=== PATIENT | male | born 1950 | race Caucasian/White ===

== ENCOUNTER 2022-09-18 15:49 | Inpatient (IN) | payer MEDICARE, MEDICAID ==
[~2022-09-18] VITALS: Ht 182.9 cm; Wt 73.0 kg
[2022-09-18] MEDS ORDERED: DEXTROSE 50%-WATER 25 GM/50 ML SYRINGE IVP PRN (18:45)
[2022-09-18] MEDS ORDERED: ACETAMINOPHEN 325 MG TABLET PO PRN (18:45)
[2022-09-18] MEDS: INSULIN LISPRO 100 UNITS/ML SQ PRN ×2 (19:54→22:55)
[2022-09-18 20:01] LABS: GLUCOMETER DEV NAME(LOC) 2WR.2B; GLUCOSE,POINT OF CARE 205 MG/DL (70-110)
[2022-09-18 20:20] VITALS: BP 123/67
[2022-09-18] MEDS: ETHYL ALCOHOL 62% ANTISEPTIC NASAL SANITIZER 0.6 ML AMPUL NASAL SCH (22:00)
[2022-09-18] MEDS: ENOXAPARIN SODIUM 30 MG/0.3 ML PF SYRINGE SQ SCH (22:00)
[2022-09-18] MEDS: ENALAPRIL MALEATE 10 MG TABLET PO SCH (22:00)
[2022-09-18] MEDS: SENNOSIDES 8.6 MG TABLET PO SCH (22:01)
[2022-09-18 23:01] LABS: GLUCOMETER DEV NAME(LOC) 2WR.1C; GLUCOSE,POINT OF CARE 142 MG/DL (70-110)
[2022-09-19] MEDS ORDERED: INFLUENZA VIRUS VACCINE QVS 2022-23 (6MO+)/PF 60 MCG/0.5 ML SYRINGE IM. ONE (01:30)
[2022-09-19 07:01] LABS: GLUCOMETER DEV NAME(LOC) 2WR.1C; GLUCOSE,POINT OF CARE 130 MG/DL (70-110)
[2022-09-19 07:47] LABS: BASOPHILS % (AUTO) 0.6 % (0.0-2.0); HEMATOCRIT 36.2 % (41-53); HEMOGLOBIN 12.7 g/dL (13.5-17.5); LYMPHOCYTES # (AUTO) 1.9 K/uL (1.0-4.8); LYMPHOCYTES % (AUTO) 26.9 % (22.0-44.0); MEAN CORPUSCULAR HEMOGLOBIN 31.2 pg (26.0-34.0); MEAN CORPUSCULAR HGB CONC 35.1 G/dL (31.0-37.0); MEAN CORPUSCULAR VOLUME 89 fL (80-100); MONOCYTES # (AUTO) 1.1 K/uL (0.1-1.0); MONOCYTES % (AUTO) 15.1 % (2.0-9.0); NEUTROPHILS # (AUTO) 3.9 K/uL (1.8-7.7); NEUTROPHILS % (AUTO) 54.4 % (40.0-70.0); PLATELET COUNT (AUTO) 306 K/uL (150-450); RED BLOOD CELL COUNT(AUTO) 4.07 MIL/uL (4.50-5.90); RED CELL DISTRIBUTION WIDTH 13.1 % (11.5-14.5)
[2022-09-19 07:57] LABS: ALANINE AMINOTRANSFERASE 27 U/L (12-78); ALBUMIN 3.3 g/dL (3.4-5.0); ALKALINE PHOSPHATASE 51 U/L (46-116); ANION GAP 9 mmol/L (8-16); ASPARTATE AMINOTRANSFERASE 23 U/L (15-37); BILIRUBIN,TOTAL 0.4 mg/dL (0.1-1.0); CARBON DIOXIDE 26 mmol/L (22-29); CHLORIDE 101 mmol/L (98-107); CREATININE 0.85 mg/dL (0.60-1.30); GLUCOSE,RANDOM 132 mg/dL (70-110); POTASSIUM 4.2 mmol/L (3.5-5.1); SODIUM SERUM 136 mmol/L (136-145); TOTAL PROTEIN, SERUM 7.5 g/dL (6.4-8.2); UREA NITROGEN, BLOOD 22 mg/dL (7-18)
[2022-09-19 08:03] LABS: GLOMERULAR FILTR. RATE CALC > 60 mL/min (>60)
[2022-09-19] MEDS: MULTIVITAMINS WITH MINERALS, THERAPEUTIC TABLET PO SCH (08:33)
[2022-09-19] MEDS: ENOXAPARIN SODIUM 30 MG/0.3 ML PF SYRINGE SQ SCH ×2 (08:33→20:59)
[2022-09-19] MEDS: POLYETHYLENE GLYCOL 3350 17 GM PACKET PO SCH (08:33)
[2022-09-19] MEDS: ETHYL ALCOHOL 62% ANTISEPTIC NASAL SANITIZER 0.6 ML AMPUL NASAL SCH ×2 (08:34→20:57)
[2022-09-19] MEDS: MetFORMIN HCL 850 MG TABLET PO SCH ×2 (08:34→17:21)
[2022-09-19] MEDS: CHOLECALCIFEROL (VIT D3) 1,000 UNITS [25 MCG] TABLET PO SCH (08:35)
[2022-09-19 10:43] VITALS: BP 117/71
[2022-09-19] MEDS: DICLOFENAC SODIUM 1% 100 GM GEL [4GM] TP SCH ×3 (11:16→20:58)
[2022-09-19] MEDS: ENALAPRIL MALEATE 10 MG TABLET PO SCH ×2 (11:16→20:57)
[2022-09-19 11:31] VITALS: BP 117/71
[2022-09-19 14:36] LABS: GLUCOMETER DEV NAME(LOC) 2WR.2B; GLUCOSE,POINT OF CARE 128 MG/DL (70-110)
[2022-09-19] MEDS: INSULIN LISPRO 100 UNITS/ML SQ PRN ×2 (17:48→21:04)
[2022-09-19 17:57] LABS: GLUCOMETER DEV NAME(LOC) 2WR.2B; GLUCOSE,POINT OF CARE 204 MG/DL (70-110)
[2022-09-19] MEDS: SENNOSIDES 8.6 MG TABLET PO SCH (20:57)
[2022-09-19 21:00] VITALS: BP 101/55
[2022-09-19 21:11] LABS: GLUCOMETER DEV NAME(LOC) 2WR.2B; GLUCOSE,POINT OF CARE 202 MG/DL (70-110)
[2022-09-20 07:43] LABS: GLUCOMETER DEV NAME(LOC) 2WR.1C; GLUCOSE,POINT OF CARE 112 MG/DL (70-110)
[2022-09-20] MEDS: OMEPRAZOLE 20 MG CAPSULE PO SCH (08:09)
[2022-09-20] MEDS: ETHYL ALCOHOL 62% ANTISEPTIC NASAL SANITIZER 0.6 ML AMPUL NASAL SCH ×2 (08:09→20:35)
[2022-09-20] MEDS: MetFORMIN HCL 850 MG TABLET PO SCH ×2 (08:09→17:19)
[2022-09-20] MEDS: ENOXAPARIN SODIUM 30 MG/0.3 ML PF SYRINGE SQ SCH ×2 (08:09→20:35)
[2022-09-20] MEDS: MULTIVITAMINS WITH MINERALS, THERAPEUTIC TABLET PO SCH (08:10)
[2022-09-20] MEDS: DICLOFENAC SODIUM 1% 100 GM GEL [4GM] TP SCH ×3 (08:11→20:36)
[2022-09-20] MEDS: CHOLECALCIFEROL (VIT D3) 1,000 UNITS [25 MCG] TABLET PO SCH (08:19)
[2022-09-20] MEDS: POLYETHYLENE GLYCOL 3350 17 GM PACKET PO SCH (08:20)
[2022-09-20 09:05] VITALS: BP 111/55
[2022-09-20] MEDS: ENALAPRIL MALEATE 10 MG TABLET PO SCH ×2 (09:32→20:36)
[2022-09-20] MEDS: INSULIN LISPRO 100 UNITS/ML SQ PRN ×2 (12:26→20:47)
[2022-09-20 12:47] LABS: GLUCOMETER DEV NAME(LOC) 2WR.1C; GLUCOSE,POINT OF CARE 204 MG/DL (70-110)
[2022-09-20 17:52] LABS: GLUCOMETER DEV NAME(LOC) 2WR.1C; GLUCOSE,POINT OF CARE 120 MG/DL (70-110)
[2022-09-20 19:40] VITALS: BP 107/61
[2022-09-20] MEDS: SENNOSIDES 8.6 MG TABLET PO SCH (20:35)
[2022-09-20 20:36] VITALS: BP 117/70
[2022-09-20 21:23] LABS: GLUCOMETER DEV NAME(LOC) 2WR.2B; GLUCOSE,POINT OF CARE 148 MG/DL (70-110)
[2022-09-21 07:13] LABS: GLUCOMETER DEV NAME(LOC) 2WR.2B; GLUCOSE,POINT OF CARE 112 MG/DL (70-110)
[2022-09-21] MEDS: DICLOFENAC SODIUM 1% 100 GM GEL [4GM] TP SCH ×3 (08:10→21:12)
[2022-09-21] MEDS: ENOXAPARIN SODIUM 30 MG/0.3 ML PF SYRINGE SQ SCH ×2 (08:16→21:12)
[2022-09-21] MEDS: ETHYL ALCOHOL 62% ANTISEPTIC NASAL SANITIZER 0.6 ML AMPUL NASAL SCH ×2 (08:18→21:11)
[2022-09-21] MEDS: CHOLECALCIFEROL (VIT D3) 1,000 UNITS [25 MCG] TABLET PO SCH (08:20)
[2022-09-21] MEDS: MULTIVITAMINS WITH MINERALS, THERAPEUTIC TABLET PO SCH (08:20)
[2022-09-21] MEDS: OMEPRAZOLE 20 MG CAPSULE PO SCH (08:21)
[2022-09-21] MEDS: MetFORMIN HCL 850 MG TABLET PO SCH ×2 (08:21→16:28)
[2022-09-21] MEDS: POLYETHYLENE GLYCOL 3350 17 GM PACKET PO SCH (08:22)
[2022-09-21 08:26] VITALS: BP 105/60
[2022-09-21] MEDS: ENALAPRIL MALEATE 10 MG TABLET PO SCH (09:19)
[2022-09-21 11:47] LABS: GLUCOMETER DEV NAME(LOC) 2WR.2B; GLUCOSE,POINT OF CARE 124 MG/DL (70-110)
[2022-09-21 16:57] LABS: GLUCOMETER DEV NAME(LOC) 2WR.2B; GLUCOSE,POINT OF CARE 116 MG/DL (70-110)
[2022-09-21 21:00] VITALS: BP 115/58
[2022-09-21 21:07] LABS: GLUCOMETER DEV NAME(LOC) 2WR.2B; GLUCOSE,POINT OF CARE 136 MG/DL (70-110)
[2022-09-21] MEDS: SENNOSIDES 8.6 MG TABLET PO SCH (21:12)
[2022-09-22 06:54] LABS: GLUCOMETER DEV NAME(LOC) 2WR.1C; GLUCOSE,POINT OF CARE 108 MG/DL (70-110)
[2022-09-22 07:40] VITALS: BP 112/61
[2022-09-22] MEDS: ENOXAPARIN SODIUM 30 MG/0.3 ML PF SYRINGE SQ SCH ×2 (07:55→20:53)
[2022-09-22] MEDS: POLYETHYLENE GLYCOL 3350 17 GM PACKET PO SCH (07:55)
[2022-09-22] MEDS: MULTIVITAMINS WITH MINERALS, THERAPEUTIC TABLET PO SCH (07:55)
[2022-09-22] MEDS: MetFORMIN HCL 850 MG TABLET PO SCH ×2 (07:56→16:38)
[2022-09-22] MEDS: ENALAPRIL MALEATE 10 MG TABLET PO SCH (07:56)
[2022-09-22] MEDS: OMEPRAZOLE 20 MG CAPSULE PO SCH (07:56)
[2022-09-22] MEDS: DICLOFENAC SODIUM 1% 100 GM GEL [4GM] TP SCH ×3 (07:56→20:54)
[2022-09-22] MEDS: CHOLECALCIFEROL (VIT D3) 1,000 UNITS [25 MCG] TABLET PO SCH (07:56)
[2022-09-22] MEDS: ETHYL ALCOHOL 62% ANTISEPTIC NASAL SANITIZER 0.6 ML AMPUL NASAL SCH ×2 (08:03→20:55)
[2022-09-22 17:01] LABS: GLUCOMETER DEV NAME(LOC) 2WR.1C; GLUCOSE,POINT OF CARE 132 MG/DL (70-110)
[2022-09-22 17:11] LABS: GLUCOMETER DEV NAME(LOC) 2WR.2B; GLUCOSE,POINT OF CARE 124 MG/DL (70-110)
[2022-09-22 20:00] VITALS: BP 125/74
[2022-09-22] MEDS: SENNOSIDES 8.6 MG TABLET PO SCH (20:53)
[2022-09-22 22:31] LABS: GLUCOMETER DEV NAME(LOC) 2WR.1C; GLUCOSE,POINT OF CARE 129 MG/DL (70-110)
[2022-09-23 06:56] LABS: GLUCOMETER DEV NAME(LOC) 2WR.1C; GLUCOSE,POINT OF CARE 97 MG/DL (70-110)
[2022-09-23] MEDS: MetFORMIN HCL 850 MG TABLET PO SCH ×2 (08:50→17:51)
[2022-09-23] MEDS: ENOXAPARIN SODIUM 30 MG/0.3 ML PF SYRINGE SQ SCH ×2 (08:51→20:32)
[2022-09-23] MEDS: CHOLECALCIFEROL (VIT D3) 1,000 UNITS [25 MCG] TABLET PO SCH (08:52)
[2022-09-23] MEDS: MULTIVITAMINS WITH MINERALS, THERAPEUTIC TABLET PO SCH (08:52)
[2022-09-23] MEDS: OMEPRAZOLE 20 MG CAPSULE PO SCH (08:53)
[2022-09-23] MEDS: DICLOFENAC SODIUM 1% 100 GM GEL [4GM] TP SCH ×3 (08:54→20:33)
[2022-09-23] MEDS: ENALAPRIL MALEATE 10 MG TABLET PO SCH (08:55)
[2022-09-23] MEDS: ETHYL ALCOHOL 62% ANTISEPTIC NASAL SANITIZER 0.6 ML AMPUL NASAL SCH ×2 (08:57→20:31)
[2022-09-23] MEDS: POLYETHYLENE GLYCOL 3350 17 GM PACKET PO SCH (09:00)
[2022-09-23 09:02] VITALS: BP 115/64
[2022-09-23 12:41] LABS: GLUCOMETER DEV NAME(LOC) 2WR.1C; GLUCOSE,POINT OF CARE 109 MG/DL (70-110)
[2022-09-23 17:11] LABS: GLUCOMETER DEV NAME(LOC) 2WR.1C; GLUCOSE,POINT OF CARE 116 MG/DL (70-110)
[2022-09-23 20:10] VITALS: BP 115/59
[2022-09-23] MEDS: SENNOSIDES 8.6 MG TABLET PO SCH (20:31)
[2022-09-23 21:00] VITALS: BP 115/59
[2022-09-24 05:41] LABS: GLUCOMETER DEV NAME(LOC) 2WR.1C; GLUCOSE,POINT OF CARE 131 MG/DL (70-110)
[2022-09-24 07:17] LABS: GLUCOMETER DEV NAME(LOC) 2WR.2B; GLUCOSE,POINT OF CARE 86 MG/DL (70-110)
[2022-09-24 08:23] VITALS: BP 115/65
[2022-09-24] MEDS: ETHYL ALCOHOL 62% ANTISEPTIC NASAL SANITIZER 0.6 ML AMPUL NASAL SCH ×2 (08:35→20:22)
[2022-09-24] MEDS: MetFORMIN HCL 850 MG TABLET PO SCH ×2 (08:35→16:28)
[2022-09-24] MEDS: POLYETHYLENE GLYCOL 3350 17 GM PACKET PO SCH (08:36)
[2022-09-24] MEDS: OMEPRAZOLE 20 MG CAPSULE PO SCH (08:36)
[2022-09-24] MEDS: ENALAPRIL MALEATE 10 MG TABLET PO SCH (08:36)
[2022-09-24] MEDS: MULTIVITAMINS WITH MINERALS, THERAPEUTIC TABLET PO SCH (08:36)
[2022-09-24] MEDS: CHOLECALCIFEROL (VIT D3) 1,000 UNITS [25 MCG] TABLET PO SCH (08:37)
[2022-09-24] MEDS: DICLOFENAC SODIUM 1% 100 GM GEL [4GM] TP SCH ×3 (08:37→20:23)
[2022-09-24] MEDS: ENOXAPARIN SODIUM 30 MG/0.3 ML PF SYRINGE SQ SCH ×2 (08:37→20:22)
[2022-09-24 12:41] LABS: GLUCOMETER DEV NAME(LOC) 2WR.2B; GLUCOSE,POINT OF CARE 110 MG/DL (70-110)
[2022-09-24 17:11] LABS: GLUCOMETER DEV NAME(LOC) 2WR.1C; GLUCOSE,POINT OF CARE 116 MG/DL (70-110)
[2022-09-24 20:12] VITALS: BP 118/68
[2022-09-24] MEDS: SENNOSIDES 8.6 MG TABLET PO SCH (20:22)
[2022-09-24 22:06] LABS: GLUCOMETER DEV NAME(LOC) 2WR.1C; GLUCOSE,POINT OF CARE 107 MG/DL (70-110)
[2022-09-25 06:56] LABS: GLUCOMETER DEV NAME(LOC) 2WR.2B; GLUCOSE,POINT OF CARE 98 MG/DL (70-110)
[2022-09-25] MEDS: MetFORMIN HCL 850 MG TABLET PO SCH ×2 (08:55→17:36)
[2022-09-25 08:59] VITALS: BP 108/54
[2022-09-25] MEDS: DICLOFENAC SODIUM 1% 100 GM GEL [4GM] TP SCH ×3 (09:19→19:54)
[2022-09-25] MEDS: ENOXAPARIN SODIUM 30 MG/0.3 ML PF SYRINGE SQ SCH ×2 (09:19→19:54)
[2022-09-25] MEDS: OMEPRAZOLE 20 MG CAPSULE PO SCH (09:20)
[2022-09-25] MEDS: CHOLECALCIFEROL (VIT D3) 1,000 UNITS [25 MCG] TABLET PO SCH (09:20)
[2022-09-25] MEDS: POLYETHYLENE GLYCOL 3350 17 GM PACKET PO SCH (09:20)
[2022-09-25] MEDS: ENALAPRIL MALEATE 10 MG TABLET PO SCH (09:20)
[2022-09-25] MEDS: MULTIVITAMINS WITH MINERALS, THERAPEUTIC TABLET PO SCH (09:20)
[2022-09-25] MEDS: ETHYL ALCOHOL 62% ANTISEPTIC NASAL SANITIZER 0.6 ML AMPUL NASAL SCH ×2 (09:21→19:54)
[2022-09-25 13:36] LABS: GLUCOMETER DEV NAME(LOC) 2WR.2B; GLUCOSE,POINT OF CARE 86 MG/DL (70-110)
[2022-09-25 18:16] LABS: GLUCOMETER DEV NAME(LOC) 2WR.2B; GLUCOSE,POINT OF CARE 103 MG/DL (70-110)
[2022-09-25] MEDS: SENNOSIDES 8.6 MG TABLET PO SCH (19:54)
[2022-09-25 19:57] VITALS: BP 104/61
[2022-09-26 05:46] LABS: GLUCOMETER DEV NAME(LOC) 2WR.1C; GLUCOSE,POINT OF CARE 120 MG/DL (70-110)
[2022-09-26 07:56] LABS: GLUCOMETER DEV NAME(LOC) 2WR.1C; GLUCOSE,POINT OF CARE 96 MG/DL (70-110)
[2022-09-26] MEDS: MetFORMIN HCL 850 MG TABLET PO SCH ×2 (08:09→18:11)
[2022-09-26] MEDS: POLYETHYLENE GLYCOL 3350 17 GM PACKET PO SCH (09:16)
[2022-09-26] MEDS: ETHYL ALCOHOL 62% ANTISEPTIC NASAL SANITIZER 0.6 ML AMPUL NASAL SCH ×2 (09:16→20:16)
[2022-09-26] MEDS: DICLOFENAC SODIUM 1% 100 GM GEL [4GM] TP SCH ×3 (09:17→20:17)
[2022-09-26] MEDS: ENALAPRIL MALEATE 10 MG TABLET PO SCH (09:17)
[2022-09-26] MEDS: MULTIVITAMINS WITH MINERALS, THERAPEUTIC TABLET PO SCH (09:17)
[2022-09-26] MEDS: ENOXAPARIN SODIUM 30 MG/0.3 ML PF SYRINGE SQ SCH ×2 (09:17→20:15)
[2022-09-26] MEDS: CHOLECALCIFEROL (VIT D3) 1,000 UNITS [25 MCG] TABLET PO SCH (09:18)
[2022-09-26] MEDS: OMEPRAZOLE 20 MG CAPSULE PO SCH (09:18)
[2022-09-26 09:30] VITALS: BP 117/63
[2022-09-26 17:41] LABS: GLUCOMETER DEV NAME(LOC) 2WR.2B; GLUCOSE,POINT OF CARE 118 MG/DL (70-110)
[2022-09-26 20:02] VITALS: BP 120/60
[2022-09-26] MEDS: SENNOSIDES 8.6 MG TABLET PO SCH (20:16)
[2022-09-26] MEDS: INSULIN LISPRO 100 UNITS/ML SQ PRN (20:22)
[2022-09-26 21:37] LABS: GLUCOMETER DEV NAME(LOC) 2WR.2B; GLUCOSE,POINT OF CARE 145 MG/DL (70-110)
[2022-09-27 06:56] LABS: GLUCOMETER DEV NAME(LOC) 2WR.1C; GLUCOSE,POINT OF CARE 83 MG/DL (70-110)
[2022-09-27 08:01] VITALS: BP 136/76
[2022-09-27] MEDS: CHOLECALCIFEROL (VIT D3) 1,000 UNITS [25 MCG] TABLET PO SCH (08:21)
[2022-09-27] MEDS: POLYETHYLENE GLYCOL 3350 17 GM PACKET PO SCH (08:21)
[2022-09-27] MEDS: DICLOFENAC SODIUM 1% 100 GM GEL [4GM] TP SCH ×3 (08:21→19:59)
[2022-09-27] MEDS: MetFORMIN HCL 850 MG TABLET PO SCH ×2 (08:21→16:13)
[2022-09-27] MEDS: ENOXAPARIN SODIUM 30 MG/0.3 ML PF SYRINGE SQ SCH ×2 (08:21→19:59)
[2022-09-27] MEDS: OMEPRAZOLE 20 MG CAPSULE PO SCH (08:21)
[2022-09-27] MEDS: MULTIVITAMINS WITH MINERALS, THERAPEUTIC TABLET PO SCH (08:21)
[2022-09-27] MEDS: ENALAPRIL MALEATE 10 MG TABLET PO SCH (08:21)
[2022-09-27] MEDS: ETHYL ALCOHOL 62% ANTISEPTIC NASAL SANITIZER 0.6 ML AMPUL NASAL SCH ×2 (08:22→19:59)
[2022-09-27 19:39] VITALS: BP 130/67
[2022-09-27] MEDS: SENNOSIDES 8.6 MG TABLET PO SCH (20:00)
[2022-09-27 21:57] LABS: GLUCOMETER DEV NAME(LOC) 2WR.1C; GLUCOSE,POINT OF CARE 115 MG/DL (70-110)
[2022-09-28 07:42] LABS: GLUCOMETER DEV NAME(LOC) 2WR.2B; GLUCOSE,POINT OF CARE 89 MG/DL (70-110)
[2022-09-28 08:01] VITALS: BP 113/60
[2022-09-28] MEDS: MULTIVITAMINS WITH MINERALS, THERAPEUTIC TABLET PO SCH (08:02)
[2022-09-28] MEDS: ENOXAPARIN SODIUM 30 MG/0.3 ML PF SYRINGE SQ SCH ×2 (08:02→20:46)
[2022-09-28] MEDS: ETHYL ALCOHOL 62% ANTISEPTIC NASAL SANITIZER 0.6 ML AMPUL NASAL SCH ×2 (08:02→20:45)
[2022-09-28] MEDS: MetFORMIN HCL 850 MG TABLET PO SCH ×2 (08:03→16:21)
[2022-09-28] MEDS: ENALAPRIL MALEATE 10 MG TABLET PO SCH (08:03)
[2022-09-28] MEDS: OMEPRAZOLE 20 MG CAPSULE PO SCH (08:03)
[2022-09-28] MEDS: POLYETHYLENE GLYCOL 3350 17 GM PACKET PO SCH (08:03)
[2022-09-28] MEDS: DICLOFENAC SODIUM 1% 100 GM GEL [4GM] TP SCH ×3 (08:05→21:07)
[2022-09-28] MEDS: CHOLECALCIFEROL (VIT D3) 1,000 UNITS [25 MCG] TABLET PO SCH (08:17)
[2022-09-28 18:08] LABS: GLUCOMETER DEV NAME(LOC) 2WR.1C; GLUCOSE,POINT OF CARE 99 MG/DL (70-110)
[2022-09-28 20:30] VITALS: BP 115/59
[2022-09-28] MEDS ORDERED: MULT-248 PO (20:31)
[2022-09-28] MEDS ORDERED: ENAL10TA18 PO (20:31)
[2022-09-28] MEDS ORDERED: DICL100G51 TP (20:31)
[2022-09-28] MEDS ORDERED: CHOL25TA4 PO (20:31)
[2022-09-28] MEDS ORDERED: POLY17PO47 PO (20:31)
[2022-09-28] MEDS ORDERED: OMEP10 PO (20:31)
[2022-09-28] MEDS ORDERED: METF-1185 PO (20:31)
[2022-09-28] MEDS: SENNOSIDES 8.6 MG TABLET PO SCH (20:46)
[2022-09-29 06:54] LABS: GLUCOMETER DEV NAME(LOC) 2WR.1C; GLUCOSE,POINT OF CARE 94 MG/DL (70-110)
[2022-09-29 08:01] VITALS: BP 109/57
[2022-09-29] MEDS: MULTIVITAMINS WITH MINERALS, THERAPEUTIC TABLET PO SCH (08:13)
[2022-09-29] MEDS: MetFORMIN HCL 850 MG TABLET PO SCH ×2 (08:13→16:42)
[2022-09-29] MEDS: POLYETHYLENE GLYCOL 3350 17 GM PACKET PO SCH (08:13)
[2022-09-29] MEDS: OMEPRAZOLE 20 MG CAPSULE PO SCH (08:13)
[2022-09-29] MEDS: ENALAPRIL MALEATE 10 MG TABLET PO SCH (08:13)
[2022-09-29] MEDS: ETHYL ALCOHOL 62% ANTISEPTIC NASAL SANITIZER 0.6 ML AMPUL NASAL SCH ×2 (08:13→20:17)
[2022-09-29] MEDS: DICLOFENAC SODIUM 1% 100 GM GEL [4GM] TP SCH ×3 (08:14→20:18)
[2022-09-29] MEDS: CHOLECALCIFEROL (VIT D3) 1,000 UNITS [25 MCG] TABLET PO SCH (08:14)
[2022-09-29] MEDS: ENOXAPARIN SODIUM 30 MG/0.3 ML PF SYRINGE SQ SCH ×2 (08:14→20:18)
[2022-09-29 17:27] LABS: GLUCOMETER DEV NAME(LOC) 2WR.2B; GLUCOSE,POINT OF CARE 100 MG/DL (70-110)
[2022-09-29] MEDS: SENNOSIDES 8.6 MG TABLET PO SCH (20:17)
[2022-09-29 20:46] VITALS: BP 124/71
[2022-09-30 06:58] LABS: GLUCOMETER DEV NAME(LOC) 2WR.2B; GLUCOSE,POINT OF CARE 90 MG/DL (70-110)
[2022-09-30 08:00] VITALS: BP 125/61
[2022-09-30] MEDS: ENOXAPARIN SODIUM 30 MG/0.3 ML PF SYRINGE SQ SCH ×2 (08:09→20:23)
[2022-09-30] MEDS: OMEPRAZOLE 20 MG CAPSULE PO SCH (08:09)
[2022-09-30] MEDS: DICLOFENAC SODIUM 1% 100 GM GEL [4GM] TP SCH ×3 (08:09→20:25)
[2022-09-30] MEDS: MULTIVITAMINS WITH MINERALS, THERAPEUTIC TABLET PO SCH (08:09)
[2022-09-30] MEDS: CHOLECALCIFEROL (VIT D3) 1,000 UNITS [25 MCG] TABLET PO SCH (08:09)
[2022-09-30] MEDS: POLYETHYLENE GLYCOL 3350 17 GM PACKET PO SCH (08:09)
[2022-09-30] MEDS: MetFORMIN HCL 850 MG TABLET PO SCH ×2 (08:10→16:21)
[2022-09-30] MEDS: ETHYL ALCOHOL 62% ANTISEPTIC NASAL SANITIZER 0.6 ML AMPUL NASAL SCH ×2 (08:10→20:23)
[2022-09-30] MEDS: ENALAPRIL MALEATE 10 MG TABLET PO SCH (08:10)
[2022-09-30] MEDS ORDERED: ENAL10TA18 PO (10:46)
[2022-09-30] MEDS ORDERED: METF-1185 PO (10:46)
[2022-09-30] MEDS ORDERED: DICL100G51 TP (10:46)
[2022-09-30] MEDS ORDERED: OMEP20 PO (10:46)
[2022-09-30] MEDS ORDERED: POLY17PO47 PO (10:46)
[2022-09-30] MEDS ORDERED: SENN-187 PO (10:46)
[2022-09-30] MEDS ORDERED: CHOL25TA4 PO (10:46)
[2022-09-30] MEDS ORDERED: MULT-1239 PO (10:46)
[2022-09-30 18:08] LABS: GLUCOMETER DEV NAME(LOC) 2WR.1C; GLUCOSE,POINT OF CARE 97 MG/DL (70-110)
[2022-09-30 19:42] VITALS: BP 116/64
[2022-09-30] MEDS: SENNOSIDES 8.6 MG TABLET PO SCH (20:25)
[2022-10-01 07:03] LABS: GLUCOMETER DEV NAME(LOC) 2WR.2B; GLUCOSE,POINT OF CARE 93 MG/DL (70-110)
[2022-10-01] MEDS: MetFORMIN HCL 850 MG TABLET PO SCH (08:47)
[2022-10-01] MEDS: POLYETHYLENE GLYCOL 3350 17 GM PACKET PO SCH (09:00)
[2022-10-01] MEDS: ENOXAPARIN SODIUM 30 MG/0.3 ML PF SYRINGE SQ SCH (09:03)
[2022-10-01] MEDS: ETHYL ALCOHOL 62% ANTISEPTIC NASAL SANITIZER 0.6 ML AMPUL NASAL SCH (09:03)
[2022-10-01] MEDS: CHOLECALCIFEROL (VIT D3) 1,000 UNITS [25 MCG] TABLET PO SCH (09:04)
[2022-10-01] MEDS: OMEPRAZOLE 20 MG CAPSULE PO SCH (09:05)
[2022-10-01] MEDS: ENALAPRIL MALEATE 10 MG TABLET PO SCH (09:05)
[2022-10-01] MEDS: MULTIVITAMINS WITH MINERALS, THERAPEUTIC TABLET PO SCH (09:05)
[2022-10-01] MEDS: DICLOFENAC SODIUM 1% 100 GM GEL [4GM] TP SCH (09:06)
[2022-10-01 09:41] VITALS: BP 131/65
== END 2022-10-01 12:00 | disposition home health service (06) | DRG 86 ==
LOC: 2WR 17:00
PROVIDERS: ADMIT Physical Medicine & Rehabilitation; ATTEND Physical Medicine & Rehabilitation
DX: S06.341A Traumatic hemorrhage of right cerebrum with loss of consciousness of 30 minutes or less, initial encounter (principal); E46 Unspecified protein-calorie malnutrition; G81.94 Hemiplegia, unspecified affecting left nondominant side; R41.4 Neurologic neglect syndrome; I71.20 Thoracic aortic aneurysm, without rupture, unspecified; K59.00 Constipation, unspecified; I10 Essential (primary) hypertension; E04.1 Nontoxic single thyroid nodule; E11.9 Type 2 diabetes mellitus without complications; R41.89 Other symptoms and signs involving cognitive functions and awareness; W18.39XA Other fall on same level, initial encounter; Z79.84 Long term (current) use of oral hypoglycemic drugs; Z68.21 Body mass index [BMI] 21.0-21.9, adult; Z79.899 Other long term (current) drug therapy; Y93.89 Activity, other specified; Y92.89 Other specified places as the place of occurrence of the external cause; Y99.8 Other external cause status; S06.1X1A Traumatic cerebral edema with loss of consciousness of 30 minutes or less, initial encounter
CPT/HCPCS: 80053; 82962; 85025; 87081; 92507; 92523; 93970; 97110; 97112; 97116; 97163; 97167; 97530; 97535; 99366; J1650